=== PATIENT | male | born 1975 | race Caucasian/White ===

== ENCOUNTER 2023-09-09 11:45 | Day surgery (SDC) | payer OTHER ==
[~2023-09-09] VITALS: Ht 170.2 cm; Wt 82.3 kg
[~2023-09-09 11:45] MED LIST: Lactated Ringer's 1,000 ML IV ONE; propofoL 50 ML IV ONE
[2023-09-09] MEDS ORDERED: CLARITIN5 MG (12:06)
[2023-09-09] MEDS ORDERED: PROP10 (12:07)
[2023-09-09] MEDS ORDERED: ROSU5 (12:07)
[2023-09-09] MEDS ORDERED: Lactated Ringer's 1,000 ML IV ONE (12:47)
== END 2023-09-09 13:45 | disposition home or self-care (01) ==
LOC: ORSCSDS 11:45
PROVIDERS: Surgery
PROC: 0DJD8ZZ Inspection of Lower Intestinal Tract, Via Natural or Artificial Opening Endoscopic (ICD-10-PCS; principal; 2023-09-09 13:00)
DX: Z12.11 Encounter for screening for malignant neoplasm of colon (principal); E78.5 Hyperlipidemia, unspecified; G25.0 Essential tremor; G47.33 Obstructive sleep apnea (adult) (pediatric); Z79.899 Other long term (current) drug therapy
CPT/HCPCS: J2704; J7120

== ENCOUNTER 2024-06-08 06:06 | Day surgery (SDC) | payer OTHER ==
[~2024-06-08] VITALS: Ht 170.2 cm; Wt 85.1 kg
[~2024-06-08 06:06] MED LIST changes: +CLARITIN5 MG; +Inderal40 MG PO; +LORA10ER PO; -Lactated Ringer's 1,000 ML IV ONE; +PROP10; +ROSU5; -propofoL 50 ML IV ONE
[2024-06-08] MEDS ORDERED: CeFAZolin Sodium 2,000 MG VIAL ONE (06:26)
[2024-06-08] MEDS ORDERED: Tranexamic Acid 100 ML IV ONE (06:28)
[2024-06-08] MEDS ORDERED: propofoL 20 ML IV ONE (06:57)
[2024-06-08] MEDS ORDERED: Dexamethasone Sod Phos 10 MG/ML 1ML VIAL ONE (06:58)
[2024-06-08] MEDS ORDERED: Ondansetron HCl 2 MG / ML 2ML Vial ONE (06:58)
[2024-06-08] MEDS ORDERED: FentaNYL Citrate 50 MCG/ML 2 ML Injection ONE ×2 (06:58→09:00)
[2024-06-08] MEDS ORDERED: EPINEPhrine HCl 1 MG/ML 1ML Amp ONE (06:59)
[2024-06-08] MEDS ORDERED: Dexmedetomidine HCL 200 MCG / 2 ML ONE (07:05)
[2024-06-08] MEDS ORDERED: OMEP20ER PO (07:20)
[2024-06-08] MEDS ORDERED: Lactated Ringer's 1,000 ML IV ONE (07:28)
[2024-06-08] MEDS ORDERED: Ketorolac Tromethamine 30mg Vial ONE (07:39)
[2024-06-08] MEDS ORDERED: Lidocaine 1%-Epineph 1:100000 20 ML MDV INJ ONE ×2 (07:55)
--- NOTE | 2024-06-08 08:16 | NUR ---
06/08/24 0816 Meagan Hester PT ARRIVES TO PACU W/ LMA IN PLACE. REPORT FROM ASSISTANT SUPERINTENDENT FOR CURRICULUM & DR. GOOD. R KNEE WRAPPED, PALPABLE DP PULSE & CAP REFILL <3 SECS. PT UNRESPONSIVE TO VOICE AT THIS TIME.
--- NOTE | 2024-06-08 09:32 | NUR ---
06/08/24 0932 Meagan Hester PT PIVOT TRANSFERRED TO RECLINER W/ MIN ASSIST, PT TOLERATED WELL. PT SITTING UP DRINKING JUICE & EATING COOKIES. PT STATES PAIN LEVEL 2/10 NOW & DENIES NAUSEA. VSS, ON RA. DRESSING REMAINS C/D/I. NO VISIBLE SIGNS OF DISTRESS NOTED.
[2024-06-08] MEDS ORDERED: OxyCODONE HCL 5 MG TAB ONE (09:33)
== END 2024-06-08 10:16 | disposition home or self-care (01) ==
LOC: ORSCSDS 06:06
PROVIDERS: Orthopaedic Surgery Sports Medicine
PROC: 0SBC4ZZ Excision of Right Knee Joint, Percutaneous Endoscopic Approach (ICD-10-PCS; principal; 2024-06-08 07:30)
DX: M23.91 Unspecified internal derangement of right knee (principal); M67.461 Ganglion, right knee; G25.0 Essential tremor; E78.5 Hyperlipidemia, unspecified; G47.33 Obstructive sleep apnea (adult) (pediatric); K21.9 Gastro-esophageal reflux disease without esophagitis; E66.9 Obesity, unspecified; Z68.29 Body mass index [BMI] 29.0-29.9, adult; Z79.899 Other long term (current) drug therapy
CPT/HCPCS: A9270; J0171; J0690; J1100; J1885; J2405; J2704; J3010

== ENCOUNTER 2024-06-29 11:31 | Day surgery (SDC) | payer OTHER ==
[~2024-06-29] VITALS: Ht 170.2 cm; Wt 85.4 kg
[~2024-06-29 11:31] MED LIST changes: +OMEP20ER PO; +propofoL 40 ML IV ONE
[2024-06-29] MEDS ORDERED: Lactated Ringer's 1,000 ML IV ONE (13:24)
== END 2024-06-29 14:25 | disposition home or self-care (01) ==
LOC: ORSCSDS 11:31
PROVIDERS: Surgery
PROC: 0DB68ZX Excision of Stomach, Via Natural or Artificial Opening Endoscopic, Diagnostic (ICD-10-PCS; principal; 2024-06-29 13:30)
DX: K21.9 Gastro-esophageal reflux disease without esophagitis (principal); G47.33 Obstructive sleep apnea (adult) (pediatric); K22.2 Esophageal obstruction; K29.70 Gastritis, unspecified, without bleeding; E78.5 Hyperlipidemia, unspecified; Z79.899 Other long term (current) drug therapy
CPT/HCPCS: 88305; 88342; J2704